=== PATIENT | female | born 1960 | race Caucasian/White ===

== ENCOUNTER 2019-10-23 23:10 | Emergency (ER) | payer BC ==
[~2019-10-23] VITALS: Ht 157.5 cm; Wt 96.0 kg
[2019-10-23 23:16] VITALS: BP 152/81
[2019-10-24] MEDS ORDERED: TRAMADOL 50MG TABLET PO ONE (01:15)
[2019-10-24] MEDS ORDERED: FLUORESCEIN SODIUM 1MG/STRIP RIGHTEYE ONE (01:30)
[2019-10-24] MEDS ORDERED: TETRACAINE 0.5% OPHTH DROPS 4ML RIGHTEYE ONE (01:30)
== END 2019-10-24 01:54 | disposition home or self-care (01) ==
LOC: ER 23:10
DX: B02.8 Zoster with other complications (principal); B02.29 Other postherpetic nervous system involvement; I10 Essential (primary) hypertension; E11.9 Type 2 diabetes mellitus without complications; E78.00 Pure hypercholesterolemia, unspecified
CPT/HCPCS: 99283; 99284